=== PATIENT | male | born 1960 | race Caucasian/White ===

== ENCOUNTER 2018-08-01 22:31 | Emergency (ER) | payer MEDICAID ==
[2018-08-01] MEDS ORDERED: TRANEXAMIC ACID 1,000 MG/10 ML VIAL NAS STA (22:43)
[2018-08-01] MEDS ORDERED: OXYMETAZOLINE NASAL SPRAY NAS STA (22:43)
--- NOTE | 2018-08-02 00:34 | ED Physician Documentation ---
PD HPI HEENT - Stated complaint Stated Complaint: NOSE BLEED - Chief complaint Chief Complaint: General - History obtained from History obtained from: Patient - History of Present Illness Timing - onset: Today Timing - duration: Hours Timing - details: Abrupt onset, Still present Location: Nose Improves: Other (pressure) Worsens: Everything Associated symptoms: No: Fever, Congestion, Rhinorrhea Similar symptoms before: Has not had sx before Recently seen: Not recently seen - Additional information Additional information: 57-year-old male developed some epistaxis earlier in the day today that lasted about 10 minutes. He states that he was able to control this with direct pressure and then when it reoccurred this evening he was having a lot of bleeding and he is coming to the emergency department for evaluation. He is only able to control his with continued pressure. Review of Systems Constitutional: denies: Fever Eyes: denies: Decreased vision Ears: denies: Ear pain Nose: reports: Epistaxis. denies: Rhinorrhea / runny nose, Congestion Throat: denies: Sore throat Respiratory: denies: Cough PD PAST MEDICAL HISTORY - Past Medical History Past Medical History: Yes Cardiovascular: High cholesterol Other Past Medical History: hepatitis c - Present Medications Home Medications: Ambulatory Orders Medication Instructions Recorded Confirmed RX: Metoprolol Succinate 50 mg PO DAILY PM #20 tab.er.24h 08/02/18 - Allergies Allergies/Adverse Reactions: Allergies Allergy/AdvReac Type Severity Reaction Status Date / Time No Known Drug Allergies Allergy Verified 08/01/18 22:45 - Social History Does the pt smoke?: Yes Smoking Status: Current every day smoker PD ED PE NORMAL - Vitals Vital signs reviewed: Yes (hypertensive marked) - General General: Alert and oriented X 3, No acute distress, Well developed/nourished - HEENT HEENT: Atraumatic, PERRL, EOMI, Other (There is bleeding bilaterally from the nares and the site appears to be anterior septum. ) - Respiratory Respiratory: No respiratory distress - Derm Derm: Normal color, Warm and dry, No rash - Extremities Extremities: No deformity, No edema - Neuro Neuro: Alert and oriented X 3, kitchen porter 2-12 intact, No motor deficit, No sensory deficit, Normal speech Eye Opening: Spontaneous Motor: Obeys Commands Verbal: Oriented GCS Score: 15 - Psych Psych: Normal mood, Normal affect Results - Vitals Vitals: Vital Signs - 24 hr 08/01/18 08/02/18 08/02/18 22:42 00:44 02:22 Temperature 36.9 C 36.5 C Heart Rate 93 85 91 Respiratory 17 20 14 Rate Blood Pressure 188/133 H 171/119 H 196/133 H O2 Saturation 97 96 95 08/02/18 08/02/18 08/02/18 02:55 03:32 04:02 Temperature 36.4 C L Heart Rate 82 86 85 Respiratory 18 16 16 Rate Blood Pressure 176/124 H 176/129 H 166/121 H O2 Saturation 96 92 94 08/02/18 08/02/18 08/02/18 04:33 05:09 05:11 Temperature 36.2 C L Heart Rate 67 Respiratory 16 Rate Blood Pressure 167/124 H 143/115 H O2 Saturation 94 Oxygen O2 Source Room air Procedures - Epistaxis Site: Both, Anterior Preparation: Afrin, Clamp / pressure applied, Other (packed with tranexemic acid) Treatment: Silver Nitrate, Packing inserted Other: Other (The patient required blood pressure treatment for hypertensive urgency.) PD MEDICAL DECISION MAKING - ED course Complexity details: reviewed results, re-evaluated patient, considered differential, d/w patient ED course: 57-year-old male with epistaxis has been able to control bleeding with direct pressure here in the emergency department Afrin is instilled followed by packing with tranexamic acid and that is subsequently removed removed and the area is cauterized with silver nitrate. This slowed the bleeding but the patient had oozing any time he stood up. His blood pressure was an issue with diastolics above 120 consistently. I thought the bleeding was controlled and attempted to discharge the patient only to find that his blood pressure was even higher than arrival and he continued to ooze blood. He was administered clonadine 0.1mg with some reduction and he was subsequently administered metoprolol tartrate 50mg. He had reduction of the blood pressure to 115 diastolic with improvement in bleeding, the packing on the left was removed and he was discharged to home with a script for metoprolol succinate. Departure - Departure Disposition: 01 Home, Self Care Clinical Impression: Epistaxis, Hypertensive urgency Condition: Stable Instructions: ED Nosebleed, ED Hypertension New Begin Tx Follow-Up: CHAVO WILEY ARNP [Primary Care Provider] - Prescriptions: RX: Metoprolol Succinate 50 mg PO DAILY PM #20 tab.er.24h Comments: Today in the Emergency Department your blood pressure was elevated. This can happen from the stress of the visit itself, from a current illness or circumstance or from uncontrolled hypertension. If you take blood pressure medications take your usual mediations, have your blood pressure re-checked in an appropriate setting and follow up any elevation with your primary care doctor. Discharge Date/Time: 08/02/18 05:38
[2018-08-02] MEDS ORDERED: cloNIDine 0.1 MG TABLET PO STA (02:17)
[2018-08-02] MEDS ORDERED: METOPROLOL TARTRATE 50 MG TABLET PO STA (03:47)
[2018-08-02 05:10] VITALS: BP 143/115
== END 2018-08-02 05:38 | disposition home or self-care (01) ==
LOC: ED 22:31
DX: R04.0 Epistaxis (principal); I16.0 Hypertensive urgency; F17.200 Nicotine dependence, unspecified, uncomplicated
CPT/HCPCS: 30901; 99283; A9270

== ENCOUNTER 2022-05-22 17:17 | Emergency (ER) | payer MEDICAID ==
[2022-05-22 17:41] VITALS: BP 167/115
--- NOTE | 2022-05-22 18:00 | ED Physician Documentation ---
History of Present Illness - Stated complaint Stated Complaint: SWELLING L ARM - Chief complaint Chief Complaint: Ext Problem - Additonal information Additional information: 61-year-old male comes to the emergency department for reevaluation of worsening left upper arm swelling. He was seen today at our [facility] clinic by Dr. Bloom. Much of the history is obtained from chart review through care everywhere. The patient is a poor historian. In brief he does have metastatic lung cancer with known mets to the brain spine. He also has had a pericardial effusion for which he underwent a window at [facility] a few weeks ago. He had first noticed the swelling in this left arm about 3 weeks ago. An initial ultrasound completed at [place] showed a superficial thrombophlebitis. He was also seen at [facility] ER on 20 May for the same arm swelling and again a repeat ultrasound showed a superficial thrombophlebitis. The patient comes to the ER today because over the last 24 hours he has had progressive swelling that now includes all of the hand forearm and swelling above the elbow. There is no erythema. No fevers. He is denying chest pain or shortness of air. PD PAST MEDICAL HISTORY - Past Medical History Cardiovascular: High cholesterol - Present Medications Home Medications: Ambulatory Orders Medication Instructions Recorded Confirmed Metoprolol Succinate 50 mg PO DAILY PM #20 tab.er.24h 08/02/18 05/22/22 - Allergies Allergies/Adverse Reactions: Allergies Allergy/AdvReac Type Severity Reaction Status Date / Time No Known Drug Allergies Allergy Verified 05/22/22 17:35 - Social History Does the pt smoke?: Yes Smoking Status: Current every day smoker PD ED PE NORMAL - General General: Alert and oriented X 3, No acute distress - Cardiac Cardiac: RRR, No murmur - Respiratory Respiratory: No respiratory distress. No: Clear bilaterally (rales left side) - Abdomen Abdomen: Normal bowel sounds, Soft - Extremities Extremities: No: No edema (Left arm is swollen from the distal tips of the fingers to just above the elbow. Pitting edema. Nontender. Neurovascularly intact. 2+ pulse. No open sores erythema noted) - Neuro Neuro: Alert and oriented X 3, quantitative equity head 2-12 intact Eye Opening: Spontaneous Motor: Obeys Commands Verbal: Oriented GCS Score: 15 Results - Vitals Vitals: Vital Signs - 24 hr 05/22/22 17:36 Temperature 37.1 C Heart Rate 82 Respiratory 18 Rate Blood Pressure 167/115 H O2 Saturation 100 Oxygen O2 Source Room air - Rads (name of study) left arm US Radiology: Other (Per instrumentation technologist superficial venous thrombus. No DVT noted.) PD Medical Decision Making - ED course Complexity details: reviewed results, re-evaluated patient, considered differential, d/w patient ED course: 61-year-old male who has metastatic lung cancer with mets to the brain and spine presents with worsening swelling in the left upper arm. Swelling began 3 weeks ago. He has had 2 previous ultrasound showing superficial venous thrombus. Despite elevation and ibuprofen the swelling is worse. Repeat ultrasound completed today again shows superficial venous thrombus but no DVT was noted. This gentleman's cancer is going to be followed by our Dr. Bloom. With the metastasis he has also developed significant pericardial effusion requiring a pericardial window. At this time no DVT is seen. I discussed with his daughter at the bedside the warm compress and elevation is the mainstay of treatment. We discussed the usual emergent return precautions for concerns of swelling especially if he should develop them in his other extremities. Departure - Departure Disposition: 01 Home, Self Care Clinical Impression: Superficial venous thrombosis of left upper extremity Metastatic lung cancer (metastasis from lung to other site) Qualifiers: Laterality: unspecified laterality Qualified Code(s): C34.90 - Malignant neoplasm of unspecified part of unspecified bronchus or lung Condition: Stable Record reviewed to determine appropriate education?: Yes Comments: Lawrence came to the ER today because he has had increased swelling in his left arm over the last 24 hours or so. He does have a history of metastatic lung cancer. He has had 2 recent ultrasounds that have shown a superficial venous thrombus in his left arm. A repeat ultrasound today continues to show the same thrombus. At this time we do not see a deep vein thrombus. No anticoagulation is indicated. However with his metastatic cancer he is at very high risk to develop blood clots deep within his veins. If he develops worsening symptoms cough, has new swelling in his arm on the right side or his lower extremities he should return to the ER immediately for repeat evaluation. In order to manage this thrombus I do recommend a warm compress over the left arm for 10 minutes 4 times a day. Continue to elevate is much as possible. Most often these types of thrombus will resolve after about 3 to 6 weeks.
--- NOTE | 2022-05-22 19:41 | Ultrasound Report ---
PROCEDURE: Duplex Ext Veins Left INDICATIONS: left arm swelling; ? DVT TECHNIQUE: Real-time imaging, as well as color and pulse Doppler interrogation, were performed of the lower extr emity deep veins from the inguinal ligament to the popliteal fossa. COMPARISON: None. FINDINGS: The deep veins are normally compressible, and free of intraluminal thrombus. Color and pu lse Doppler demonstrate normal phasic intraluminal flow. There is normal augmentation response to di stal compression maneuver. Intraluminal filling defects are seen within left cephalic vein and proximal left forearm. Multiple enlarged lymph nodes are noted scattered in left axilla and proximal left upper arm. IMPRESSION: 1. No evidence of DVT in visualized left upper extremity veins. 2. Superficial thrombosis within left basilic vein in left forearm. 3. Prominent left axillary lymph nodes and likely represent reactive inflammatory nodes. Reviewed by: Bryant Farris MD on 05/22/2022 7:40 PM PST Approved by: Bryant Farris MD on 05/22/2022 7:40 PM PST Station ID: [id number]
== END 2022-05-22 19:43 | disposition home or self-care (01) ==
LOC: ED 17:17
DX: I82.612 Acute embolism and thrombosis of superficial veins of left upper extremity (principal); C34.90 Malignant neoplasm of unspecified part of unspecified bronchus or lung; C79.51 Secondary malignant neoplasm of bone; C79.31 Secondary malignant neoplasm of brain; F17.200 Nicotine dependence, unspecified, uncomplicated
CPT/HCPCS: 99284

== ENCOUNTER → 2022-05-22 | Outpatient (CLI) | payer MEDICAID ==
--- NOTE | 2022-05-22 15:57 | ONCOLOGY/HEMATOLOGY VISIT ---
HEME/ONC PROGRESS NOTE: ONCOLOGY HISTORY: 1. metastatic lung adenocarcinoma, stage IV, involving bilateral lungs with pericardial effusion, right pleural effusion, neck and left axillary lymph nodes, and bones. * right pleural fluid cytology on 04/28/2022 showed adenocarcinoma, PDL-1 negative, Ros-1 and ALK negative by FISH. NOt enough tissue for molecular test ing. 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 left arm swelling, concerning for DVT 3. Left shoulder, upper arm and right upper chest pain. On ibuprofen and oxycodone. 4. Open wound of the right chest tube insertion site HISTORY OF CURRENT ILLNESS/REVIEW OF SYSTEMS: Patient was seen as inpatient at [place] on 04/27/2022 for newly diagnosed metastatic lung adenocarcinoma. He is here today with his daughter to establish care. He complains of increased left arm swelling and pain. Taking ibuprofen 600mg tid and oxycodone (5 mg) for his upper chest, shoulder, and right lower lateral chest pains. He has been coughing intermittently and that opened out his right lateral lower chest wall wound from the catheter insertion. He reports a good appetite. ASSESSMENT/PLAN: 1. metastatic lung adenocarcinoma. PDL-1 negative. * reviewed with patient and his daughter the stage of his cancer and his prognosis. * this is not curable and treatment goal is for palliation. * will obtain NGS (liquid bx via [facility]). Or obtain NGS on the left neck lymph node biopsy from [place], by [facility]. * recommended first line chemoimmunotherapy with carboplatin, alimta and keytruda. * Explained to patient the schedule of this regimen and the expected side effects from chemotherapy and immunotherapy. * chemotherapy can cause fatigue, nausea, loss of appetite, bone marrow suppression with increased risk of infection, anemia which might require blood transfusions, thrombocytopenia with increased risk of bleeding, etc. * immunotherapy may cause immune mediated side effects such as endocrinopathy, pneumonitis, hepatitis, colitis, etc. * He will need chemoeducation if he decides to start with the above regimen. 2. intracranial metastasis. * he was referred to rad onc by Dr. Willis. He is asymptomatic. * consider a whole spine MRI to rule out leptomeningeal involvement 3. increased left arm swelling and pain. * previously shown to have superficial venous thrombosis * sent to ER for urgent left UE doppler to rule out DVT 4. Referred him to palliative care 5. Cancer related pain, continue with oxycodone and ibuprofen (600 mg tid). 6. HIstory of right pleural effusion, malignant * s/p catheter drain and removal. * continue local wound care. * Follow up: patient will call us with his decision. SOCIAL HISTORY: He is a former smoker. Now living with his daughter in [place]. PHYSICAL EXAM: Cachectic. no acute distress. BIlateral lung exam revealed scattered wheezes. no signs of pleural effusion. Left arm is swollen and tender. E/M code was selected based [id number] spent on the date of encounter reviewing pertinent history and previous diagnostics, including outside facility medical records, performing medically appropriate examination and evaluation, ordering diagnostic tests and/or medications, counseling and education to patient/family/caregiver, referring and communicating with other health care transitions manager, documenting clinical information in the electronic health record, independently interpreting results and communicating results to the patient/family/caregiver. This is excludes activities performed by clinical staff. Clinical Data: Allergies No Known Drug Allergies Allergy (Verified 08/01/18 22:45)
[2022-05-25 10:11] VITALS: BP 170/103
== END ==
LOC: MAC.MOP 15:27
PROVIDERS: ATTEND Internal Medicine Hematology & Oncology
DX: C34.90 Malignant neoplasm of unspecified part of unspecified bronchus or lung (principal); C78.02 Secondary malignant neoplasm of left lung; C78.01 Secondary malignant neoplasm of right lung; C77.8 Secondary and unspecified malignant neoplasm of lymph nodes of multiple regions; C79.51 Secondary malignant neoplasm of bone; C79.31 Secondary malignant neoplasm of brain; G89.3 Neoplasm related pain (acute) (chronic); I31.31 Malignant pericardial effusion in diseases classified elsewhere; J91.0 Malignant pleural effusion; M79.89 Other specified soft tissue disorders; M25.512 Pain in left shoulder; M79.622 Pain in left upper arm; R07.9 Chest pain, unspecified; R64 Cachexia; T81.31XA Disruption of external operation (surgical) wound, not elsewhere classified, initial encounter; Z79.1 Long term (current) use of non-steroidal anti-inflammatories (NSAID); Z79.891 Long term (current) use of opiate analgesic; Z51.5 Encounter for palliative care; Z68.23 Body mass index [BMI] 23.0-23.9, adult; I82.612 Acute embolism and thrombosis of superficial veins of left upper extremity; F17.200 Nicotine dependence, unspecified, uncomplicated
CPT/HCPCS: 99211; 99215; 99284; 99417

== ENCOUNTER 2022-06-07 12:02 | Outpatient (CLI) | payer MEDICAID ==
[2022-06-07 12:33] LABS: INR 1.2 (0.8-1.2)
[2022-06-07 12:41] LABS: PARTIAL THROMBOPLASTIN TIME 28.9 secs (24.9-33.3)
[2022-06-07] MEDS ORDERED: LIDOCAINE-MPF 1% 5 ML VIAL ONE (13:11)
--- NOTE | 2022-06-07 16:45 | Ultrasound Report ---
PROCEDURE: Chest INDICATIONS: LT PLEURAL EFFUSION TECHNIQUE: Real-time scanning was performed, and a suitable site was marked by the camera maker for thoracentesis to be performed by the referring clinician. COMPARISON: None. FINDINGS: Small left pleural effusion, insufficient for thoracentesis. IMPRESSION: Small left pleural effusion, insufficient for thoracentesis. Reviewed by: Demarco Rogers MD on 06/07/2022 4:44 PM PST Approved by: Demarco Rogers MD on 06/07/2022 4:44 PM PST Station ID: [id number]
== END 2022-06-07 12:03 | disposition home or self-care (01) ==
LOC: DI 12:02
PROVIDERS: ATTEND Internal Medicine Hematology & Oncology
DX: J90 Pleural effusion, not elsewhere classified (principal); C34.90 Malignant neoplasm of unspecified part of unspecified bronchus or lung
CPT/HCPCS: 36415; 85610; 85730

== ENCOUNTER 2022-07-23 16:24 | Outpatient (CLI) | payer MEDICAID ==
--- NOTE | 2022-07-23 16:50 | XRAY Report ---
PROCEDURE: Chest 2 View X-Ray INDICATIONS: EVAL FOR RECURRENT MALIGNANT PLURAL EFFUSION TECHNIQUE: 2 views of the chest were acquired. COMPARISON: CT chest 05/29/2022. FINDINGS: Surgical changes and devices: None. Lungs and pleura: Diffuse bilateral pulmonary opacities, left greater than right. Suspected trace bi lateral pleural effusions. No pneumothorax. Mediastinum: Mediastinal contours appear normal. Heart size is normal. Bones and chest wall: Previously seen sclerotic foci in the spine are not well evaluated radiographi tika. IMPRESSION: Diffuse left greater than right pulmonary opacities. Trace bilateral pleural effusions. Reviewed by: Salvatore Garcia MD on 07/23/2022 4:49 PM PDT Approved by: Salvatore Garcia MD on 07/23/2022 4:49 PM PDT Station ID: [id number]
== END 2022-07-23 16:25 | disposition home or self-care (01) ==
LOC: DI 16:24
PROVIDERS: ATTEND Family Medicine
DX: J90 Pleural effusion, not elsewhere classified (principal); R91.8 Other nonspecific abnormal finding of lung field